=== PATIENT | male | born 2000 | race African-American/Black ===

== ENCOUNTER 2023-07-02 18:50 | Emergency (ER) | payer MEDICAID, OTHER ==
[~2023-07-02] VITALS: Ht 190.5 cm; Wt 119.0 kg
[2023-07-02] MEDS ORDERED: LORA10CA PO (22:15)
[2023-07-02] MEDS ORDERED: AZIT4SOL RIGHTEYE (22:15)
[2023-07-02] MEDS ORDERED: BENZ100C97 PO (22:15)
[2023-07-02] MEDS: DexAMETHasone SOD PHOS 10MG/1ML VIAL INJ IM ONE (22:56)
[2023-07-02 23:00] VITALS: BP 123/66; PULSE 93; RESP 16; TEMP 98.8; O2SAT 98
== END 2023-07-02 23:02 | disposition home or self-care (01) ==
LOC: ER 18:50
DX: J06.9 Acute upper respiratory infection, unspecified (principal); H10.31 Unspecified acute conjunctivitis, right eye
CPT/HCPCS: 71046; 96372; 99283; J1100